=== PATIENT | female | born 1955 | race Caucasian/White ===

== ENCOUNTER 2017-03-25 17:09 | Emergency (ER) | payer OTHER ==
[~2017-03-25] VITALS: Ht 153 cm; Wt 56.8 kg
[2017-03-25 19:12] VITALS: BP 149/92
== END 2017-03-25 19:53 | disposition home or self-care (01) ==
LOC: EMS 17:11
DX: H11.31 Conjunctival hemorrhage, right eye (principal); E78.00 Pure hypercholesterolemia, unspecified
CPT/HCPCS: 99281